=== PATIENT | male | born 1995 | race Caucasian/White ===

== ENCOUNTER → 2025-03-12 07:46 | Outpatient (REF) | payer BC, SELFPAY | LOC: HWRAD 07:46 | PROVIDERS: ATTENDING PHYSICIAN Student in an Organized Health Care Education/Training Program | DX: R74.8 Abnormal levels of other serum enzymes (principal) | CPT/HCPCS: 76700 ==

== ENCOUNTER 2025-06-12 05:57 | Emergency (ER) | payer BC, SELFPAY ==
[2025-06-12 06:00] VITALS: BP 132/91
[2025-06-12 06:17] VITALS: BMI 34.2
--- NOTE | 2025-06-12 06:58 | ED.SKININJ ---
HPI-Injury
General
Chief Complaint: Skin Problem
Source: patient
Exam Limitations: none
Time Seen by Provider: 06/12/25 06:44
History of Present Illness-Injury
Initial Injury comments:
29-year-old male otherwise healthy presents complaining of onset of redness swelling and pain to the left large toe. This started last evening got worse overnight. He is not a diabetic. He does see a candy cutter machine for a fungal infection under his
nails of which he is treated for. No trauma or injury. No fevers or chills. No other complaints at this time
Past History
Past History
ED Past Medical History: None
Social History
Tobacco: Non-smoker
Personal: Single
Living: with family
Employment: Employed
Phy Exam
Physical Exam
Physical Exam:
General: Well-appearing male no acute respiratory distress
Skin: Erythema noted to the skin around the left large toe nail. No fluctuance. The toenail is not ingrown. The toenail does have fungal infection underneath it. There is no paronychia or abscess it is visible or palpable
Course
Vital Signs
Initial and Last Documented VS:
Initial Vital Signs
Temp Pulse Resp BP Pulse Ox
98.3 F 85 14 132/91 95
06/12/25 06:00 06/12/25 06:00 06/12/25 06:00 06/12/25 06:00 06/12/25 06:00
Last Documented Vital Signs
Temp Pulse Resp BP Pulse Ox
98.3 F 85 14 132/91 95
06/12/25 06:00 06/12/25 06:00 06/12/25 06:00 06/12/25 06:00 06/12/25 06:00
MDM/Problems Addressed
Differential Diagnosis Includes:
Erythema swelling and discomfort to the left large toe. No visible abscess or drainable paronychia. No evidence of ingrown nail but I suspect cellulitis. Will prescribe doxycycline. Advise warm compresses and podiatry follow-up. Return to ER
given
*Pulse Oximetry
SaO2: 95
Patient hypoxic: no
*Critical Care Note
Total Time (30-74mins, 75-104mins- exclusive of procedures): Not Applicable
ED Attending Note
-
Portions of this chart may have been created with voice recognition software.� Occasional wrong word or��sound alike� substitutions may have occurred due to the inherent limitations of voice recognition software.
Discharge Plan
Departure
Patient Disposition: Home (Routine Discharge)
Date of Disposition: 06/12/25
Time of Disposition: 07:00
Patient with high blood pressure during this ER visit?: No
Discharge Problem:
Cellulitis
Instructions: Cellulitis (Skin Infection), Adult (DC)
Prescriptions:
New
doxycycline hyclate 100 mg capsule
100 mg PO BID Qty: 14 0RF
Activity Restrictions/Additional Instructions:
Use warm soaks several times a day. Take antibiotic as directed. Return if worse otherwise follow-up with your candy cutter machine
Interventions
Interventions:
*Risk Screen - Suicide Last Done: 06/12/25 06:00
*General Assessment Last Done: 06/12/25 06:17
*Neglect/Abuse Screening Last Done: 06/12/25 06:21
*ED COVID-19 Vaccine History Last Done: 06/12/25 06:17
*ED Influenza Vaccine History Last Done: 06/12/25 06:17
[facility] Fall Risk Assessment Tool Last Done: 06/12/25 06:17
ED-Skin Assessment Last Done: 06/12/25 06:17
Discharge Date and Time
Print Language: MALTESE
== END 2025-06-12 07:15 | disposition home or self-care (01) ==
LOC: EMR 05:57
PROVIDERS: EMERGENCY PHYSICIAN Emergency Medicine; FAMILY PHYSICIAN Student in an Organized Health Care Education/Training Program
DX: L03.032 Cellulitis of left toe (principal)
CPT/HCPCS: 99282